=== PATIENT | female | born 1950 | race Caucasian/White ===

== ENCOUNTER 2022-05-13 18:19 | Inpatient (IN) ==
[2022-05-13] MEDS ORDERED: SODIUM CHLORIDE 0.9% 500 ML IV STA (19:05)
[2022-05-13] MEDS ORDERED: ONDANSETRON 4 MG/2 ML VIAL IV STA (19:05)
[2022-05-13] MEDS ORDERED: FUROSEMIDE 40 MG/4 ML VIAL IV STA (19:37)
[2022-05-13 20:17] LABS: Basophils % 0.3 % (0.0-0.8); Eosinophils % 0.2 % (0.00-10.9); Hematocrit 44.8 VOL% (35.7-47.0); Hemoglobin 14.6 GM/DL (12.0-16.0); Immature Granulocytes % 0.2 %; Immature Granulocytes Absolute 0.01 #; Lymphocytes # 1.3 10*3/uL (1.4-4.0); Lymphocytes % 21.7 % (21.3-54.2); Mean Corpuscular HGB Conc 32.6 GM/DL (32-36); Mean Platelet Volume 13.2 FL (9.6-12.0); Monocytes # 0.5 10*3/uL (0.11-0.8); Monocytes % 8.2 % (1.7-12.7); Neutrophils % 69.4 % (38.7-73.9); Platelet Count 142 T/CUMM (130-400); Red Blood Count 3.93 MC/CUMM (3.8-5.5); Red Cell Distribution Width 14.6 % (9.3-17.3)
[2022-05-13 20:29] LABS: Albumin 3.9 G/DL (3.4-5.0); Bilirubin,Total 0.5 MG/DL (0.20-1.00); Calcium 9.7 MG/DL (8.5-10.1); Osmolality,Calculated 290.4 MOS/KG (273-304); Potassium 4.9 MMOL/L (3.5-5.1); Total Protein 7.5 G/DL (6.4-8.2)
[2022-05-13 20:30] LABS: Mucus,Urine Occasional /LPF (Occasional); RBC,Urine 1 /HPF (0-4); Squamous Epithelial Cell,Urine Occasional /HPF (0-10)
[2022-05-13 20:33] LABS: Bilirubin,Urine Negative (Negative); Blood, Urine Negative (Negative); Glucose,Urine (UA) Negative (Negative); Ketones,Urine Trace mg/dL (Negative); Nitrite,Urine Negative (Negative); Protein,Urine >=300 mg/dL (Negative); Urine Appearance Clear (Clear); Urine Color Yellow (Yellow); Urine Specific Gravity > 1.030 (1.001-1.035); Urine Urobilinogen 0.2 eU/dL (<2.0); Urine pH 5.5 (4.5-8.0)
[2022-05-13] MEDS ORDERED: ONDANSETRON 4 MG/2 ML VIAL IV PRN (21:36)
[2022-05-13] MEDS ORDERED: hydrALAZINE 20 MG/1 ML VIAL IV PRN (21:36)
[2022-05-13] MEDS ORDERED: ACETAMINOPHEN 325 MG TABLET PO PRN (21:36)
[2022-05-13] MEDS ORDERED: GLUCAGON 1 MG VIAL IM PRN (21:36)
[2022-05-13] MEDS ORDERED: MORPHINE 2 MG/1 ML SYRINGE IV PRN (21:36)
[2022-05-13] MEDS ORDERED: DEXTROSE 10% 250 ML BAG IV PRN (21:53)
[2022-05-13 23:37] LABS: Hepatitis B Core IgM Quant 0.06 Index; Hepatitis B Surface Ag Quant 0.12 Index; Hepatitis B Surface Ag Result Non-Reactive (NonReactive); Hepatitis C Virus Ab Quant 0.06 Index; Hepatitis C Virus Ab Result Non-Reactive (NonReactive)
[2022-05-14 05:32] LABS: Albumin 3.2 G/DL (3.4-5.0); Bilirubin,Total 0.4 MG/DL (0.20-1.00); Calcium 8.8 MG/DL (8.5-10.1); Osmolality,Calculated 287.4 MOS/KG (273-304); Potassium 3.7 MMOL/L (3.5-5.1); Risk Ratio 3.26; Thyroid Stimulating Hormone 1.21 uIU/ml (0.358-3.74); Total Protein 6.4 G/DL (6.4-8.2); VLDL Cholesterol 26.6 MG/DL
[2022-05-14] MEDS ORDERED: lisinopriL 2.5 MG TABLET PO SCH (09:00)
[2022-05-14] MEDS: INSULIN LISPRO 100 UNIT/ML SUBCUT SCH ×4 (10:44→21:25)
[2022-05-14] MEDS: LACTULOSE 20 GM/30 ML UDCUP PO SCH ×2 (10:47→21:24)
[2022-05-14] MEDS: TOPIRAMATE 200 MG TABLET PO SCH ×2 (10:47→21:25)
[2022-05-14] MEDS: PANTOPRAZOLE 40 MG TABLET PO SCH (10:47)
[2022-05-14] MEDS: FUROSEMIDE 40 MG/4 ML VIAL IV SCH ×2 (10:47→16:52)
[2022-05-14] MEDS: OXcarbazepine 300 MG TABLET PO SCH ×2 (10:47→21:25)
[2022-05-14] MEDS: PHENobarbital 30 MG TABLET PO SCH ×4 (10:49→21:25)
[2022-05-14] MEDS: busPIRone 10 MG TABLET PO SCH ×2 (10:50→21:25)
[2022-05-14] MEDS: OLANZapine 2.5 MG TABLET PO SCH (10:50)
[2022-05-14 13:32] LABS: INR 1.1; PT Patient Result 12.1 SECS (10.5-12.0)
[2022-05-14] MEDS: ENOXAPARIN 40 MG/0.4 ML SYRINGE SUBCUT SCH (21:24)
[2022-05-14] MEDS: OLANZapine 5 MG TABLET PO SCH (21:25)
[2022-05-14] MEDS: carvediloL 3.125 MG TABLET PO SCH (21:25)
[2022-05-15 05:40] LABS: Basophils % 0.7 % (0.0-0.8); Eosinophils # 0.2 10*3/uL (0.0-0.87); Hematocrit 41.2 VOL% (35.7-47.0); Hemoglobin 13.6 GM/DL (12.0-16.0); Immature Granulocytes % 0.2 %; Immature Granulocytes Absolute 0.01 #; Lymphocytes # 2.6 10*3/uL (1.4-4.0); Lymphocytes % 45.9 % (21.3-54.2); Mean Corpuscular Volume 112.9 FL (87-102); Mean Platelet Volume 13.1 FL (9.6-12.0); Monocytes # 0.5 10*3/uL (0.11-0.8); Neutrophils % 41.2 % (38.7-73.9); Platelet Count 140 T/CUMM (130-400); Red Blood Count 3.65 MC/CUMM (3.8-5.5); Red Cell Distribution Width 14.6 % (9.3-17.3); White Blood Count 5.7 T/CUMM (4-12)
[2022-05-15 06:05] LABS: Macrocytosis 1+; Platelet Estimate Decreased
[2022-05-15 06:06] LABS: Calcium 8.6 MG/DL (8.5-10.1); Osmolality,Calculated 278.2 MOS/KG (273-304)
[2022-05-15 07:11] LABS: Calcium 8.7 MG/DL (8.5-10.1); Osmolality,Calculated 284.7 MOS/KG (273-304); Potassium 3.9 MMOL/L (3.5-5.1)
[2022-05-15] MEDS: INSULIN LISPRO 100 UNIT/ML SUBCUT SCH ×4 (07:53→21:57)
[2022-05-15] MEDS: OLANZapine 2.5 MG TABLET PO SCH (10:46)
[2022-05-15] MEDS: PHENobarbital 30 MG TABLET PO SCH ×4 (10:46→21:56)
[2022-05-15] MEDS: DAPAGLIFLOZIN 10 MG TABLET PO SCH (10:46)
[2022-05-15] MEDS: PANTOPRAZOLE 40 MG TABLET PO SCH (10:46)
[2022-05-15] MEDS: FUROSEMIDE 40 MG/4 ML VIAL IV SCH ×2 (10:46→15:20)
[2022-05-15] MEDS: TOPIRAMATE 200 MG TABLET PO SCH ×2 (10:46→21:56)
[2022-05-15] MEDS: LACTULOSE 20 GM/30 ML UDCUP PO SCH ×2 (10:46→21:56)
[2022-05-15] MEDS: OXcarbazepine 300 MG TABLET PO SCH ×2 (10:47→21:57)
[2022-05-15] MEDS: LOSARTAN 25 MG TABLET PO SCH (10:47)
[2022-05-15] MEDS: carvediloL 3.125 MG TABLET PO SCH ×2 (10:47→21:57)
[2022-05-15] MEDS: busPIRone 10 MG TABLET PO SCH ×2 (10:47→21:57)
[2022-05-15] MEDS: FLUoxetine 10 MG CAPSULE PO SCH (10:47)
[2022-05-15] MEDS ORDERED: ZINC OXIDE PASTE 113 GM TUBE TOP PRN (14:10)
[2022-05-15] MEDS: ENOXAPARIN 40 MG/0.4 ML SYRINGE SUBCUT SCH (21:56)
[2022-05-15] MEDS: OLANZapine 5 MG TABLET PO SCH (21:57)
[2022-05-16 05:02] LABS: Basophils % 0.7 % (0.0-0.8); Eosinophils # 0.2 10*3/uL (0.0-0.87); Eosinophils % 3.5 % (0.00-10.9); Hematocrit 42.2 VOL% (35.7-47.0); Hemoglobin 14.1 GM/DL (12.0-16.0); Immature Granulocytes % 0.2 %; Immature Granulocytes Absolute 0.01 #; Lymphocytes # 2.7 10*3/uL (1.4-4.0); Lymphocytes % 49.7 % (21.3-54.2); Mean Corpuscular HGB Conc 33.4 GM/DL (32-36); Mean Corpuscular Volume 111.3 FL (87-102); Monocytes # 0.5 10*3/uL (0.11-0.8); Monocytes % 8.8 % (1.7-12.7); Neutrophils % 37.1 % (38.7-73.9); Platelet Count 133 T/CUMM (130-400); Red Blood Count 3.79 MC/CUMM (3.8-5.5); Red Cell Distribution Width 14.5 % (9.3-17.3); White Blood Count 5.5 T/CUMM (4-12)
[2022-05-16 05:12] LABS: Calcium 8.5 MG/DL (8.5-10.1); Osmolality,Calculated 282.7 MOS/KG (273-304); Potassium 3.2 MMOL/L (3.5-5.1)
[2022-05-16 06:04] LABS: Eosinophils 1 % (0-10); Lymphocytes 43 % (20-55); Macrocytosis 1+; Platelet Estimate Adequate; Total Cells Counted 100
[2022-05-16] MEDS ORDERED: POTASSIUM CHLORIDE 20 MEQ TABLET PO ONE (08:24)
[2022-05-16] MEDS ORDERED: SODIUM CHLORIDE 0.9% 1,000 ML IV SCH ×2 (09:30)
[2022-05-16] MEDS: FUROSEMIDE 40 MG/4 ML VIAL IV SCH ×3 (09:40→18:46)
[2022-05-16] MEDS: LACTULOSE 20 GM/30 ML UDCUP PO SCH ×2 (10:26→21:32)
[2022-05-16] MEDS: PHENobarbital 30 MG TABLET PO SCH ×4 (10:27→21:32)
[2022-05-16] MEDS: TOPIRAMATE 200 MG TABLET PO SCH ×2 (10:27→21:32)
[2022-05-16] MEDS: FLUoxetine 10 MG CAPSULE PO SCH (10:27)
[2022-05-16] MEDS: busPIRone 10 MG TABLET PO SCH ×2 (10:27→21:32)
[2022-05-16] MEDS: PANTOPRAZOLE 40 MG TABLET PO SCH (10:28)
[2022-05-16] MEDS: OLANZapine 2.5 MG TABLET PO SCH (10:28)
[2022-05-16] MEDS: DAPAGLIFLOZIN 10 MG TABLET PO SCH (10:28)
[2022-05-16] MEDS: OXcarbazepine 300 MG TABLET PO SCH ×2 (10:28→21:32)
[2022-05-16] MEDS: carvediloL 3.125 MG TABLET PO SCH ×2 (10:28→21:32)
[2022-05-16] MEDS: LOSARTAN 25 MG TABLET PO SCH (10:29)
[2022-05-16] MEDS: INSULIN LISPRO 100 UNIT/ML SUBCUT SCH ×4 (11:10→21:32)
[2022-05-16] MEDS ORDERED: HEPARIN/NACL 0.9% 2 UNITS/ML 3,000 UNIT/1,500 ML BAG IV ONE (11:58)
[2022-05-16] MEDS ORDERED: MIDAZOLAM 2 MG/2 ML VIAL ONE (13:06)
[2022-05-16] MEDS ORDERED: LIDOCAINE 2% 5 ML VIAL ONE (13:07)
[2022-05-16] MEDS ORDERED: propofoL 200 MG/20 ML VIAL IV ONE (13:07)
[2022-05-16] MEDS ORDERED: ETOMIDATE 40 MG/20 ML VIAL IV ONE (13:08)
[2022-05-16] MEDS ORDERED: fentaNYL 100 MCG/2 ML VIAL ONE (13:38)
[2022-05-16] MEDS ORDERED: GLUCAGON 1 MG VIAL IM PRN (17:27)
[2022-05-16] MEDS ORDERED: DEXTROSE 10% 250 ML BAG IV PRN (17:29)
[2022-05-16] MEDS: ENOXAPARIN 40 MG/0.4 ML SYRINGE SUBCUT SCH (21:32)
[2022-05-16] MEDS: OLANZapine 5 MG TABLET PO SCH (21:33)
[2022-05-17 05:51] LABS: Basophils % 0.3 % (0.0-0.8); Eosinophils # 0.1 10*3/uL (0.0-0.87); Eosinophils % 1.3 % (0.00-10.9); Hematocrit 46.2 VOL% (35.7-47.0); Hemoglobin 15.2 GM/DL (12.0-16.0); Immature Granulocytes % 0.3 %; Immature Granulocytes Absolute 0.02 #; Lymphocytes # 1.5 10*3/uL (1.4-4.0); Lymphocytes % 20.9 % (21.3-54.2); Mean Corpuscular HGB Conc 32.9 GM/DL (32-36); Mean Corpuscular Volume 112.1 FL (87-102); Mean Platelet Volume 12.1 FL (9.6-12.0); Monocytes # 0.4 10*3/uL (0.11-0.8); Monocytes % 5.6 % (1.7-12.7); Neutrophils % 71.6 % (38.7-73.9); Platelet Count 141 T/CUMM (130-400); Red Blood Count 4.12 MC/CUMM (3.8-5.5); Red Cell Distribution Width 14.6 % (9.3-17.3); White Blood Count 7.1 T/CUMM (4-12)
[2022-05-17 06:07] LABS: Calcium 8.7 MG/DL (8.5-10.1); Osmolality,Calculated 283.4 MOS/KG (273-304); Potassium 3.4 MMOL/L (3.5-5.1)
[2022-05-17] MEDS: INSULIN LISPRO 100 UNIT/ML SUBCUT SCH ×4 (08:41→20:12)
[2022-05-17] MEDS ORDERED: POTASSIUM CHLORIDE 20 MEQ TABLET PO SCH (09:00)
[2022-05-17] MEDS ORDERED: POTASSIUM CHLORIDE 20 MEQ TABLET PO ONE (09:00)
[2022-05-17] MEDS: FLUoxetine 10 MG CAPSULE PO SCH (09:47)
[2022-05-17] MEDS: carvediloL 3.125 MG TABLET PO SCH ×2 (09:47→20:11)
[2022-05-17] MEDS: TOPIRAMATE 200 MG TABLET PO SCH ×2 (09:47→20:10)
[2022-05-17] MEDS: PHENobarbital 30 MG TABLET PO SCH ×4 (09:47→20:13)
[2022-05-17] MEDS: SACUBITRIL/VALSARTAN 49-51 MG TABLET PO SCH ×2 (09:47→20:11)
[2022-05-17] MEDS: PANTOPRAZOLE 40 MG TABLET PO SCH (09:47)
[2022-05-17] MEDS: SPIRONOLACTONE 25 MG TABLET PO SCH (09:48)
[2022-05-17] MEDS: busPIRone 10 MG TABLET PO SCH ×2 (09:48→20:11)
[2022-05-17] MEDS: OXcarbazepine 300 MG TABLET PO SCH ×2 (09:48→20:11)
[2022-05-17] MEDS: DAPAGLIFLOZIN 10 MG TABLET PO SCH (09:49)
[2022-05-17] MEDS: POTASSIUM CHLORIDE 10 MEQ TABLET PO SCH (09:49)
[2022-05-17] MEDS: LACTULOSE 20 GM/30 ML UDCUP PO SCH ×2 (09:49→20:11)
[2022-05-17] MEDS: FUROSEMIDE 40 MG TABLET PO SCH ×2 (09:49→16:23)
[2022-05-17] MEDS: OLANZapine 2.5 MG TABLET PO SCH (09:52)
[2022-05-17] MEDS: OLANZapine 5 MG TABLET PO SCH (20:11)
[2022-05-17] MEDS: ENOXAPARIN 40 MG/0.4 ML SYRINGE SUBCUT SCH (20:12)
[2022-05-18 06:08] LABS: Basophils % 0.5 % (0.0-0.8); Eosinophils # 0.2 10*3/uL (0.0-0.87); Eosinophils % 3.7 % (0.00-10.9); Hematocrit 45.6 VOL% (35.7-47.0); Immature Granulocytes % 1.7 %; Lymphocytes # 1.4 10*3/uL (1.4-4.0); Lymphocytes % 23.7 % (21.3-54.2); Mean Corpuscular HGB Conc 32.9 GM/DL (32-36); Mean Corpuscular Volume 113.2 FL (87-102); Monocytes # 0.5 10*3/uL (0.11-0.8); Monocytes % 9.1 % (1.7-12.7); Neutrophils % 61.3 % (38.7-73.9); Platelet Count 137 T/CUMM (130-400); Red Blood Count 4.03 MC/CUMM (3.8-5.5); White Blood Count 5.9 T/CUMM (4-12)
[2022-05-18 06:42] LABS: Calcium 8.6 MG/DL (8.5-10.1); Osmolality,Calculated 282.3 MOS/KG (273-304); Potassium 3.3 MMOL/L (3.5-5.1)
[2022-05-18 06:49] LABS: Macrocytosis Slight; Platelet Estimate Adequate
[2022-05-18] MEDS: INSULIN LISPRO 100 UNIT/ML SUBCUT SCH ×4 (07:57→20:00)
[2022-05-18] MEDS ORDERED: POTASSIUM CHLORIDE 20 MEQ TABLET PO ONE (09:01)
[2022-05-18] MEDS: LACTULOSE 20 GM/30 ML UDCUP PO SCH ×2 (09:19→20:00)
[2022-05-18] MEDS: OXcarbazepine 300 MG TABLET PO SCH ×2 (09:19→20:00)
[2022-05-18] MEDS: PHENobarbital 30 MG TABLET PO SCH ×4 (09:19→20:00)
[2022-05-18] MEDS: POTASSIUM CHLORIDE 10 MEQ TABLET PO SCH (09:19)
[2022-05-18] MEDS: DAPAGLIFLOZIN 10 MG TABLET PO SCH (09:19)
[2022-05-18] MEDS: FLUoxetine 10 MG CAPSULE PO SCH (09:20)
[2022-05-18] MEDS: busPIRone 10 MG TABLET PO SCH ×2 (09:20→20:00)
[2022-05-18] MEDS: TOPIRAMATE 200 MG TABLET PO SCH ×2 (09:20→20:00)
[2022-05-18] MEDS: PANTOPRAZOLE 40 MG TABLET PO SCH (09:20)
[2022-05-18] MEDS: SACUBITRIL/VALSARTAN 49-51 MG TABLET PO SCH ×2 (09:20→20:00)
[2022-05-18] MEDS: OLANZapine 2.5 MG TABLET PO SCH (09:20)
[2022-05-18] MEDS: carvediloL 3.125 MG TABLET PO SCH ×2 (09:21→20:00)
[2022-05-18] MEDS: SPIRONOLACTONE 25 MG TABLET PO SCH (09:21)
[2022-05-18] MEDS: FUROSEMIDE 40 MG TABLET PO SCH ×2 (09:21→17:35)
[2022-05-18] MEDS: OLANZapine 5 MG TABLET PO SCH (20:00)
[2022-05-18] MEDS: ENOXAPARIN 40 MG/0.4 ML SYRINGE SUBCUT SCH (20:00)
[2022-05-19 05:23] LABS: Basophils % 0.3 % (0.0-0.8); Eosinophils # 0.3 10*3/uL (0.0-0.87); Eosinophils % 3.4 % (0.00-10.9); Hematocrit 48.1 VOL% (35.7-47.0); Hemoglobin 15.7 GM/DL (12.0-16.0); Immature Granulocytes % 0.4 %; Immature Granulocytes Absolute 0.03 #; Lymphocytes # 1.5 10*3/uL (1.4-4.0); Lymphocytes % 19.8 % (21.3-54.2); Mean Corpuscular HGB Conc 32.6 GM/DL (32-36); Mean Corpuscular Volume 114.3 FL (87-102); Mean Platelet Volume 12.7 FL (9.6-12.0); Monocytes # 0.8 10*3/uL (0.11-0.8); Neutrophils % 66.1 % (38.7-73.9); Platelet Count 139 T/CUMM (130-400); Red Blood Count 4.21 MC/CUMM (3.8-5.5); Red Cell Distribution Width 15.1 % (9.3-17.3); White Blood Count 7.6 T/CUMM (4-12)
[2022-05-19 05:47] LABS: Calcium 8.6 MG/DL (8.5-10.1); Osmolality,Calculated 283.1 MOS/KG (273-304); Potassium 3.8 MMOL/L (3.5-5.1)
[2022-05-19 06:15] LABS: Calcium 8.6 MG/DL (8.5-10.1); Osmolality,Calculated 279.4 MOS/KG (273-304); Potassium 3.4 MMOL/L (3.5-5.1)
[2022-05-19] MEDS: INSULIN LISPRO 100 UNIT/ML SUBCUT SCH ×3 (08:22→17:41)
[2022-05-19] MEDS: DAPAGLIFLOZIN 10 MG TABLET PO SCH (10:15)
[2022-05-19] MEDS: POTASSIUM CHLORIDE 10 MEQ TABLET PO SCH (10:15)
[2022-05-19] MEDS: OXcarbazepine 300 MG TABLET PO SCH (10:15)
[2022-05-19] MEDS: FUROSEMIDE 40 MG TABLET PO SCH ×2 (10:15→17:50)
[2022-05-19] MEDS: PANTOPRAZOLE 40 MG TABLET PO SCH (10:15)
[2022-05-19] MEDS: PHENobarbital 30 MG TABLET PO SCH ×3 (10:15→17:50)
[2022-05-19] MEDS: carvediloL 3.125 MG TABLET PO SCH (10:15)
[2022-05-19] MEDS: OLANZapine 2.5 MG TABLET PO SCH (10:15)
[2022-05-19] MEDS: SPIRONOLACTONE 25 MG TABLET PO SCH (10:16)
[2022-05-19] MEDS: SACUBITRIL/VALSARTAN 49-51 MG TABLET PO SCH (10:16)
[2022-05-19] MEDS: LACTULOSE 20 GM/30 ML UDCUP PO SCH (10:16)
[2022-05-19] MEDS: TOPIRAMATE 200 MG TABLET PO SCH (10:16)
[2022-05-19] MEDS: FLUoxetine 10 MG CAPSULE PO SCH (10:16)
[2022-05-19] MEDS: busPIRone 10 MG TABLET PO SCH (10:16)
[2022-05-19 17:23] VITALS: BP 101/65
== END 2022-05-19 18:03 | DRG 286 ==
LOC: N.ED 18:19 → N.EDINP 21:38 → SUATTDRO 21:38 → N.TELEN 22:39
PROVIDERS: ADMIT Hospitalist; ATTEND Family Medicine

== ENCOUNTER 2022-06-30 11:09 | Inpatient (IN) ==
[2022-06-30 12:35] LABS: Basophils % 0.4 % (0.0-0.8); Eosinophils # 0.1 10*3/uL (0.0-0.87); Eosinophils % 1.6 % (0.00-10.9); Hematocrit 42.8 VOL% (35.7-47.0); Hemoglobin 14.4 GM/DL (12.0-16.0); Immature Granulocytes % 0.3 %; Immature Granulocytes Absolute 0.02 #; Lymphocytes # 0.8 10*3/uL (1.4-4.0); Mean Corpuscular HGB Conc 33.6 GM/DL (32-36); Mean Corpuscular Volume 110.3 FL (87-102); Mean Platelet Volume 11.9 FL (9.6-12.0); Monocytes # 0.5 10*3/uL (0.11-0.8); Monocytes % 6.5 % (1.7-12.7); Neutrophils % 79.2 % (38.7-73.9); Platelet Count 163 T/CUMM (130-400); Red Blood Count 3.88 MC/CUMM (3.8-5.5); Red Cell Distribution Width 14.7 % (9.3-17.3); White Blood Count 6.9 T/CUMM (4-12)
[2022-06-30 12:55] LABS: Albumin 3.8 G/DL (3.4-5.0); Bilirubin,Total 0.7 MG/DL (0.20-1.00); Calcium 9.3 MG/DL (8.5-10.1); Osmolality,Calculated 275.2 MOS/KG (273-304); Potassium 4.2 MMOL/L (3.5-5.1); Total Protein 7.1 G/DL (6.4-8.2)
[2022-06-30] MEDS ORDERED: GLUCAGON 1 MG VIAL IM PRN (14:46)
[2022-06-30] MEDS ORDERED: ONDANSETRON 4 MG/2 ML VIAL IV PRN (14:46)
[2022-06-30] MEDS ORDERED: DOCUSATE SODIUM 100 MG CAPSULE PO PRN (14:46)
[2022-06-30] MEDS ORDERED: ACETAMINOPHEN 325 MG TABLET PO PRN (14:46)
[2022-06-30] MEDS ORDERED: LACTULOSE 20 GM/30 ML UDCUP PO PRN (14:46)
[2022-06-30] MEDS ORDERED: ALBUTEROL 2.5 MG/3 ML NEB RESP TX PRN (14:46)
[2022-06-30] MEDS ORDERED: SIMETHICONE CHEW 125 MG TABLET PO PRN (14:46)
[2022-06-30] MEDS ORDERED: ALUMINUM/MAGNES/SIMETH MAX STR 30 ML UDCUP PO PRN (14:46)
[2022-06-30] MEDS ORDERED: DEXTROSE 10% 250 ML BAG IV PRN (14:58)
[2022-06-30] MEDS ORDERED: SODIUM CHLORIDE 0.9% 1,000 ML IV SCH (15:00)
[2022-06-30 16:06] LABS: Bacteria,Urine Occasional /HPF (Few); Hyaline Casts,Urine 1 /LPF (0-3); RBC,Urine <1 /HPF (0-4); Squamous Epithelial Cell,Urine Occasional /HPF (0-10)
[2022-06-30 16:07] LABS: Bilirubin,Urine Negative (Negative); Blood, Urine Negative (Negative); Glucose,Urine (UA) 250 mg/dL (Negative); Ketones,Urine Negative (Negative); Nitrite,Urine Negative (Negative); Protein,Urine Negative (Negative); Urine Appearance Clear (Clear); Urine Color Yellow (Yellow); Urine Urobilinogen 0.2 eU/dL (<2.0); Urine pH 5.5 (4.5-8.0)
[2022-06-30] MEDS: PHENobarbital 30 MG TABLET PO SCH ×2 (17:07→20:53)
[2022-06-30] MEDS: SACUBITRIL/VALSARTAN 49-51 MG TABLET PO SCH (20:50)
[2022-06-30] MEDS: TOPIRAMATE 100 MG TABLET PO SCH (20:50)
[2022-06-30] MEDS: OLANZapine 5 MG TABLET PO SCH (20:50)
[2022-06-30] MEDS: busPIRone 10 MG TABLET PO SCH (20:50)
[2022-06-30] MEDS ORDERED: carvediloL 3.125 MG TABLET PO SCH (21:00)
[2022-07-01 06:09] LABS: Basophils % 0.7 % (0.0-0.8); Eosinophils # 0.1 10*3/uL (0.0-0.87); Eosinophils % 1.7 % (0.00-10.9); Hematocrit 41.4 VOL% (35.7-47.0); Immature Granulocytes % 0.3 %; Immature Granulocytes Absolute 0.02 #; Lymphocytes # 1.6 10*3/uL (1.4-4.0); Lymphocytes % 26.1 % (21.3-54.2); Mean Corpuscular HGB Conc 33.8 GM/DL (32-36); Mean Corpuscular Volume 112.2 FL (87-102); Mean Platelet Volume 12.8 FL (9.6-12.0); Monocytes # 0.6 10*3/uL (0.11-0.8); Monocytes % 10.5 % (1.7-12.7); Neutrophils % 60.7 % (38.7-73.9); Platelet Count 162 T/CUMM (130-400); Red Blood Count 3.69 MC/CUMM (3.8-5.5); Red Cell Distribution Width 14.9 % (9.3-17.3)
[2022-07-01 06:29] LABS: Macrocytosis 1+; Platelet Estimate Normal
[2022-07-01 06:44] LABS: Albumin 3.4 G/DL (3.4-5.0); Bilirubin,Total 0.8 MG/DL (0.20-1.00); Calcium 9.3 MG/DL (8.5-10.1); Osmolality,Calculated 277.1 MOS/KG (273-304); Potassium 4.3 MMOL/L (3.5-5.1); Risk Ratio 4.06; Thyroid Stimulating Hormone 4.38 uIU/ml (0.358-3.74); VLDL Cholesterol 23.4 MG/DL
[2022-07-01] MEDS: SACUBITRIL/VALSARTAN 49-51 MG TABLET PO SCH ×2 (08:42→20:35)
[2022-07-01] MEDS: TOPIRAMATE 100 MG TABLET PO SCH ×2 (08:42→20:39)
[2022-07-01] MEDS: PHENobarbital 30 MG TABLET PO SCH ×4 (08:42→20:35)
[2022-07-01] MEDS: PANTOPRAZOLE 40 MG TABLET PO SCH (08:42)
[2022-07-01] MEDS: carvediloL 3.125 MG TABLET PO SCH ×2 (08:42→20:39)
[2022-07-01] MEDS: FLUoxetine 20 MG CAPSULE PO SCH (08:42)
[2022-07-01] MEDS: busPIRone 10 MG TABLET PO SCH ×2 (08:43→20:35)
[2022-07-01] MEDS: OLANZapine 2.5 MG TABLET PO SCH (08:43)
[2022-07-01] MEDS ORDERED: SPIRONOLACTONE 25 MG TABLET PO SCH (09:00)
[2022-07-01] MEDS ORDERED: MAGNESIUM HYDROXIDE SUSP 30 ML UDCUP PO PRN (14:16)
[2022-07-01] MEDS ORDERED: diphenhydrAMINE CAP 25 MG CAPSULE PO PRN (14:17)
[2022-07-01] MEDS ORDERED: BUPIVACAINE SPINAL 0.75% 2 ML AMP SPINAL ONE (14:23)
[2022-07-01] MEDS ORDERED: buprenorphine HCL 0.3 MG/ML VIAL ONE (14:25)
[2022-07-01] MEDS ORDERED: MIDAZOLAM 2 MG/2 ML VIAL ONE (14:27)
[2022-07-01] MEDS ORDERED: KETAMINE 500 MG/10 ML VIAL ONE (14:27)
[2022-07-01] MEDS ORDERED: PHENYLEPHRINE 1 MG/10 ML SYRINGE IV ONE (14:37)
[2022-07-01] MEDS ORDERED: ePHEDrine 50 MG/ML VIAL ONE (15:07)
[2022-07-01] MEDS ORDERED: ceFAZolin 1,000 MG VIAL ONE (15:14)
[2022-07-01] MEDS ORDERED: LACTATED RINGERS 1,000 ML IV ONE (15:17)
[2022-07-01] MEDS: LACTATED RINGERS 1,000 ML IV SCH (15:55)
[2022-07-01] MEDS ORDERED: ceFAZolin 2,000 MG/50 ML DUPLEX IV ONE (17:15)
[2022-07-01] MEDS: OLANZapine 5 MG TABLET PO SCH (20:35)
[2022-07-01] MEDS: OXcarbazepine 300 MG TABLET PO SCH (20:38)
[2022-07-01] MEDS ORDERED: NALOXONE 0.4 MG/ML VIAL IV ONE (21:12)
[2022-07-02] MEDS: LACTATED RINGERS 1,000 ML IV SCH ×3 (00:17→10:11)
[2022-07-02] MEDS ORDERED: FONDAPARINUX 2.5 MG/0.5 ML SYRINGE SUBCUT SCH (06:30)
[2022-07-02 06:53] LABS: Basophils # 0.1 10*3/uL (0.0-0.2); Basophils % 0.7 % (0.0-0.8); Eosinophils # 0.5 10*3/uL (0.0-0.87); Hematocrit 40.1 VOL% (35.7-47.0); Hemoglobin 13.1 GM/DL (12.0-16.0); Immature Granulocytes % 0.3 %; Immature Granulocytes Absolute 0.02 #; Lymphocytes # 1.8 10*3/uL (1.4-4.0); Lymphocytes % 26.1 % (21.3-54.2); Mean Corpuscular HGB Conc 32.7 GM/DL (32-36); Mean Corpuscular Volume 117.6 FL (87-102); Mean Platelet Volume 12.5 FL (9.6-12.0); Monocytes % 15.2 % (1.7-12.7); Neutrophils % 50.7 % (38.7-73.9); Platelet Count 128 T/CUMM (130-400); Red Blood Count 3.41 MC/CUMM (3.8-5.5); Red Cell Distribution Width 15.5 % (9.3-17.3); White Blood Count 6.7 T/CUMM (4-12)
[2022-07-02 07:19] LABS: Bilirubin,Total 0.8 MG/DL (0.20-1.00); Calcium 9.1 MG/DL (8.5-10.1); Potassium 4.5 MMOL/L (3.5-5.1); Total Protein 6.6 G/DL (6.4-8.2)
[2022-07-02] MEDS: busPIRone 10 MG TABLET PO SCH (09:24)
[2022-07-02] MEDS: PANTOPRAZOLE 40 MG TABLET PO SCH (09:24)
[2022-07-02] MEDS: FLUoxetine 20 MG CAPSULE PO SCH (09:24)
[2022-07-02] MEDS: SACUBITRIL/VALSARTAN 49-51 MG TABLET PO SCH (09:25)
[2022-07-02] MEDS: TOPIRAMATE 100 MG TABLET PO SCH (09:25)
[2022-07-02] MEDS: OXcarbazepine 300 MG TABLET PO SCH (09:25)
[2022-07-02] MEDS: carvediloL 3.125 MG TABLET PO SCH (09:25)
[2022-07-02] MEDS: OLANZapine 2.5 MG TABLET PO SCH (09:25)
[2022-07-02] MEDS: PHENobarbital 30 MG TABLET PO SCH ×2 (09:36→14:28)
[2022-07-02 12:26] VITALS: BP 111/77
== END 2022-07-02 13:43 | DRG 481 ==
LOC: N.ED 11:09 → SUATTDRO 14:46 → N.EDINP 14:46 → N.3E 15:25
PROVIDERS: ADMIT Internal Medicine; ATTEND Internal Medicine